=== PATIENT | female | born 1960 | race African-American/Black ===

== ENCOUNTER 2016-06-30 22:01 | Emergency (ER) | payer MEDICAID ==
[~2016-06-30] VITALS: Ht 167.6 cm; Wt 79.0 kg
[~2016-06-30 22:01] MED LIST: ACET-3161 GT; ATOR10TA69 PO; CARI350T27 PO; HYDR12.529 PO; LEVO25TA7 PO
[2016-06-30] MEDS ORDERED: LORAZEPAM 2MG/ML CPJ IV STA (22:50)
[2016-06-30 23:33] LABS: BASOPHILS % 0.9 % (0.0-2.0); HEMATOCRIT. 40.2 % (36.0-48.0); HEMOGLOBIN. 13.5 g/dL (12.0-16.0); LYMPHOCYTES % 44.1 % (20.0-50.0); MEAN CORPUSCULAR HEMOGLOBIN 32.6 pg (28.0-32.0); MEAN CORPUSCULAR HGB CONC 33.5 g/dL (31.0-37.0); MEAN CORPUSCULAR VOLUME 97.3 fL (81.0-99.0); MEAN PLATELET VOLUME 8.3 fl (7.4-10.4); MONOCYTES % 5.6 % (2.0-8.0); NEUTROPHILS % 48.4 % (40.0-76.0); PLATELET 296 x1000/uL (130-400); RED BLOOD CELL COUNT 4.13 mill/uL (4.2-5.4); RED CELL DISTRIBUTION WIDTH 15.1 % (11.6-14.6); WHITE BLOOD COUNT 5.4 x1000/uL (4.5-11.0)
[2016-06-30 23:43] LABS: CHLORIDE 101 mEq/L (98-107); INDEX HEMOLYSI 2 (1-3); INDEX ICTERIC 1 (1-4); INDEX LIPEMIC 1 (1-3)
[2016-06-30 23:58] LABS: AMMONIA 36 uMol/L (<32)
[2016-07-01] LABS: ANION GAP 18; CARBON DIOXIDE 21 mEq/L (21-32)
[2016-07-01 00:01] LABS: ALANINE AMINOTRANSFERASE 50 IU/L (13-61); ALBUMIN 3.7 g/dL (3.4-5.0); CALCIUM 8.9 mg/dL (8.5-10.1); ETHANOL BLOOD 65 mg/dL; UREA NITROGEN BLOOD 17 mg/dL (7-21); eGFR > 60 mL/min (>60)
[2016-07-01 00:02] LABS: ACETAMINOPHEN 13 ug/mL (10-30); THYROID STIMULATING HORMONE 0.38 uIU/mL (0.36-3.74)
[2016-07-01 00:09] LABS: CLARITY URINE CLEAR (CLEAR); COLOR URINE YELLOW (YELLOW); GLUCOSE URINE NEGATIVE (NEGATIVE); KETONES URINE NEGATIVE (NEGATIVE); LEUKOCYTE ESTERASE URINE NEGATIVE (NEGATIVE); NITRITE URINE NEGATIVE (NEGATIVE); OCCULT BLOOD URINE NEGATIVE (NEGATIVE); PH URINE 5.5 (4.5-8.0); PROTEIN URINE NEGATIVE (NEGATIVE); SPECIFIC GRAVITY URINE 1.013 (1.005-1.030); UROBILINOGEN URINE 0.2 E.U./dL (0.2-1.0)
[2016-07-01 00:27] LABS: *AMPHETAMINES SCREEN URINE NEGATIVE (NEGATIVE); *BARBITURATES SCREEN URINE NEGATIVE (NEGATIVE); *BENZODIAZEPINES SCREEN URINE NEGATIVE (NEGATIVE); *COCAINE SCREEN URINE NEGATIVE (NEGATIVE); CANNABINOID URINE SCREEN NEGATIVE (NEGATIVE); ECSTASY MDMA SCREEN URINE NEGATIVE (NEGATIVE); METHADONE URINE SCREEN NEGATIVE (NEGATIVE); OPIATES URINE SCREEN PRESUMTIVE POSITIVE (NEGATIVE); PHENCYCLIDINE URINE SCREEN NEGATIVE (NEGATIVE)
[2016-07-01 02:00] VITALS: BP 137/78
== END 2016-07-01 02:18 | disposition home or self-care (01) ==
LOC: ER 22:01
DX: G93.40 Encephalopathy, unspecified (principal); I10 Essential (primary) hypertension; I51.7 Cardiomegaly; Z98.890 Other specified postprocedural states
CPT/HCPCS: 36415; 70450; 71010; 80053; 80302; 80305; 80329; 81003; 82140; 84443; 85025; 93005; 99285; G0482; Z7610; 80307

== ENCOUNTER 2018-07-01 19:17 | Emergency (ER) | payer MEDICAID ==
[~2018-07-01] VITALS: Ht 162.6 cm; Wt 73.0 kg
[2018-07-01] MEDS ORDERED: SODIUM CHLORIDE 0.9% 1,000 ML IV ONE (20:52)
[2018-07-01] MEDS ORDERED: ONDANSETRON HCL 4MG/2ML INJ IV STA (20:52)
[2018-07-01] MEDS ORDERED: IPRATROPIUM/ALBUTEROL 0.5-3(2.5)MG/3ML NEB HHN ONE (21:45)
[2018-07-01 22:21] LABS: BASOPHILS % 0.9 % (0.0-2.0); EOSINOPHILS % 1.9 % (0.0-5.0); HEMATOCRIT. 26.9 % (36.0-48.0); HEMOGLOBIN. 8.8 g/dL (12.0-16.0); LYMPHOCYTES % 59.2 % (20.0-50.0); MEAN CORPUSCULAR HEMOGLOBIN 31.2 pg (28.0-32.0); MEAN CORPUSCULAR VOLUME 94.7 fL (81.0-99.0); MEAN PLATELET VOLUME 8.9 fl (7.4-10.4); MONOCYTES % 6.7 % (2.0-8.0); NEUTROPHILS % 31.3 % (40.0-76.0); PLATELET 203 x1000/uL (130-400); RED BLOOD CELL COUNT 2.84 mill/uL (4.2-5.4); RED CELL DISTRIBUTION WIDTH 14.7 % (11.6-14.6)
[2018-07-01 22:25] LABS: CHLORIDE 111 mEq/L (98-107)
[2018-07-01 22:30] LABS: ETHANOL BLOOD < 10 mg/dL
[2018-07-01] MEDS ORDERED: POTASSIUM CHLORIDE 20MEQ TABLET SR PO ONE (22:45)
[2018-07-01 23:48] LABS: *AMPHETAMINES SCREEN URINE NEGATIVE (NEGATIVE); *BARBITURATES SCREEN URINE NEGATIVE (NEGATIVE); *BENZODIAZEPINES SCREEN URINE NEGATIVE (NEGATIVE); *COCAINE SCREEN URINE NEGATIVE (NEGATIVE)
[2018-07-01 23:49] LABS: CANNABINOID URINE SCREEN NEGATIVE (NEGATIVE); METHADONE URINE SCREEN NEGATIVE (NEGATIVE); OPIATES URINE SCREEN PRESUMTIVE POSITIVE (NEGATIVE); PHENCYCLIDINE URINE SCREEN NEGATIVE (NEGATIVE)
[2018-07-02 02:06] VITALS: BP 106/59
== END 2018-07-02 02:43 | disposition home or self-care (01) ==
LOC: ER 19:17
DX: T42.8X1A Poisoning by antiparkinsonism drugs and other central muscle-tone depressants, accidental (unintentional), initial encounter (principal); G93.40 Encephalopathy, unspecified; J45.909 Unspecified asthma, uncomplicated; I10 Essential (primary) hypertension; E03.9 Hypothyroidism, unspecified; F17.200 Nicotine dependence, unspecified, uncomplicated; Z79.899 Other long term (current) drug therapy; Y92.89 Other specified places as the place of occurrence of the external cause
CPT/HCPCS: 36415; 80053; 80305; 80320; 82962; 83880; 84484; 85025; 93005; 94640; 96361; 96374; 99284; J2405; J7030; J7620; Z7610; G0480

== ENCOUNTER 2018-12-29 15:23 | Emergency (ER) | payer MEDICAID, OTHER ==
[~2018-12-29] VITALS: Ht 167.6 cm; Wt 59.0 kg
[2018-12-29 18:16] LABS: BASOPHILS % 1.2 % (0.0-2.0); EOSINOPHILS % 1.2 % (0.0-5.0); HEMATOCRIT. 39.1 % (36.0-48.0); HEMOGLOBIN. 13.2 g/dL (12.0-16.0); LYMPHOCYTES % 43.6 % (20.0-50.0); MEAN CORPUSCULAR HEMOGLOBIN 31.5 pg (28.0-32.0); MEAN CORPUSCULAR VOLUME 93.2 fL (81.0-99.0); MEAN PLATELET VOLUME 9.7 fl (7.4-10.4); MONOCYTES % 6.3 % (2.0-8.0); NEUTROPHILS % 47.7 % (40.0-76.0); PLATELET 223 x1000/uL (130-400); RED CELL DISTRIBUTION WIDTH 14.6 % (11.6-14.6)
[2018-12-29 18:23] LABS: CHLORIDE 101 mEq/L (98-107)
[2018-12-29 18:26] LABS: ETHANOL BLOOD < 10 mg/dL
[2018-12-29 18:51] LABS: CLARITY URINE CLEAR (CLEAR); COLOR URINE YELLOW (YELLOW); KETONES URINE NEGATIVE (NEGATIVE); LEUKOCYTE ESTERASE URINE NEGATIVE (NEGATIVE); NITRITE URINE NEGATIVE (NEGATIVE); OCCULT BLOOD URINE NEGATIVE (NEGATIVE); PROTEIN URINE NEGATIVE (NEGATIVE); SPECIFIC GRAVITY URINE 1.018 (1.005-1.030); UROBILINOGEN URINE 0.2 E.U./dL (0.2-1.0)
[2018-12-29 19:19] LABS: *AMPHETAMINES SCREEN URINE NEGATIVE (NEGATIVE); *BARBITURATES SCREEN URINE NEGATIVE (NEGATIVE); *BENZODIAZEPINES SCREEN URINE NEGATIVE (NEGATIVE); *COCAINE SCREEN URINE NEGATIVE (NEGATIVE); CANNABINOID URINE SCREEN NEGATIVE (NEGATIVE)
[2018-12-29 19:20] LABS: METHADONE URINE SCREEN NEGATIVE (NEGATIVE); OPIATES URINE SCREEN PRESUMTIVE POSITIVE (NEGATIVE); PHENCYCLIDINE URINE SCREEN NEGATIVE (NEGATIVE)
[2018-12-29 22:51] VITALS: BP 123/74
== END 2018-12-29 22:54 | disposition home or self-care (01) ==
LOC: ER 15:23
DX: T40.601A Poisoning by unspecified narcotics, accidental (unintentional), initial encounter (principal); R41.82 Altered mental status, unspecified; E86.0 Dehydration; J44.9 Chronic obstructive pulmonary disease, unspecified; E78.00 Pure hypercholesterolemia, unspecified; I10 Essential (primary) hypertension; E03.9 Hypothyroidism, unspecified; F17.210 Nicotine dependence, cigarettes, uncomplicated; Y92.488 Other paved roadways as the place of occurrence of the external cause
CPT/HCPCS: 36415; 71045; 80305; 80307; 80320; 80329; 81003; 81025; 82140; 83605; 84443; 99284; G0480

== ENCOUNTER 2019-12-16 19:02 | Emergency (ER) | payer MEDICAID ==
[~2019-12-16] VITALS: Ht 167.6 cm; Wt 72.0 kg
[2019-12-16] MEDS ORDERED: SODIUM CHLORIDE 0.9% 1,000 ML IV ONE (19:33)
[2019-12-16 19:58] LABS: BASOPHILS % 0.5 % (0.0-2.0); EOSINOPHILS % 0.4 % (0.0-5.0); HEMATOCRIT. 40.4 % (36.0-48.0); HEMOGLOBIN. 13.5 g/dL (12.0-16.0); LYMPHOCYTES % 45.1 % (20.0-50.0); MEAN PLATELET VOLUME 9.4 fl (7.4-10.4); MONOCYTES % 8.4 % (2.0-8.0); NEUTROPHILS % 45.6 % (40.0-76.0); PLATELET 228 x1000/uL (130-400); RED BLOOD CELL COUNT 4.21 mill/uL (4.2-5.4); RED CELL DISTRIBUTION WIDTH 14.5 % (11.6-14.6)
[2019-12-16 20:18] LABS: CHLORIDE 104 mEq/L (98-107)
[2019-12-16 20:23] LABS: ETHANOL BLOOD < 10 mg/dL
[2019-12-16 20:28] LABS: CREATINE KINASE 76 IU/L (26-192)
[2019-12-16 21:21] LABS: CLARITY URINE CLEAR (CLEAR); COLOR URINE YELLOW (YELLOW); KETONES URINE NEGATIVE (NEGATIVE); LEUKOCYTE ESTERASE URINE NEGATIVE (NEGATIVE); NITRITE URINE NEGATIVE (NEGATIVE); OCCULT BLOOD URINE NEGATIVE (NEGATIVE); PH URINE 5.5 (4.5-8.0); PROTEIN URINE NEGATIVE (NEGATIVE); UROBILINOGEN URINE 0.2 E.U./dL (0.2-1.0)
[2019-12-16 21:38] LABS: *AMPHETAMINES SCREEN URINE NEGATIVE (NEGATIVE); *BARBITURATES SCREEN URINE NEGATIVE (NEGATIVE); *BENZODIAZEPINES SCREEN URINE NEGATIVE (NEGATIVE); *COCAINE SCREEN URINE NEGATIVE (NEGATIVE); CANNABINOID URINE SCREEN NEGATIVE (NEGATIVE); METHADONE URINE SCREEN NEGATIVE (NEGATIVE)
[2019-12-16 21:39] LABS: OPIATES URINE SCREEN PRESUMTIVE POSITIVE (NEGATIVE); PHENCYCLIDINE URINE SCREEN NEGATIVE (NEGATIVE)
[2019-12-17] VITALS: BP 140/75
== END 2019-12-17 00:10 | disposition home or self-care (01) ==
LOC: ER 19:02
DX: T42.8X1A Poisoning by antiparkinsonism drugs and other central muscle-tone depressants, accidental (unintentional), initial encounter (principal); T39.1X1A Poisoning by 4-Aminophenol derivatives, accidental (unintentional), initial encounter; I10 Essential (primary) hypertension; J45.909 Unspecified asthma, uncomplicated; Z78.1 Physical restraint status; Y92.018 Other place in single-family (private) house as the place of occurrence of the external cause
CPT/HCPCS: 36415; 71045; 80053; 80305; 80307; 80320; 80329; 81003; 82550; 83880; 84484; 85025; 93005; 96360; 99285; J7030; G0480

== ENCOUNTER 2021-05-16 18:39 | Emergency (ER) | payer MEDICAID ==
[~2021-05-16] VITALS: Ht 165.1 cm; Wt 54.0 kg
[2021-05-16 20:36] LABS: BASOPHILS % 0.6 % (0.0-2.0); EOSINOPHILS % 0.4 % (0.0-5.0); HEMATOCRIT. 41.8 % (36.0-48.0); LYMPHOCYTES % 53.2 % (20.0-50.0); MEAN CORPUSCULAR HEMOGLOBIN 31.4 pg (28.0-32.0); MEAN CORPUSCULAR VOLUME 93.6 fL (81.0-99.0); MEAN PLATELET VOLUME 8.6 fl (7.4-10.4); MONOCYTES % 6.6 % (2.0-8.0); NEUTROPHILS % 39.2 % (40.0-76.0); PLATELET 283 x1000/uL (130-400); RED BLOOD CELL COUNT 4.47 mill/uL (4.2-5.4); RED CELL DISTRIBUTION WIDTH 14.1 % (11.6-14.6)
[2021-05-16 20:44] LABS: CHLORIDE 100 mEq/L (98-107)
[2021-05-16 20:49] LABS: ETHANOL BLOOD < 10 mg/dL
[2021-05-17 00:09] LABS: CLARITY URINE CLEAR (CLEAR); COLOR URINE YELLOW (YELLOW); KETONES URINE NEGATIVE (NEGATIVE); LEUKOCYTE ESTERASE URINE NEGATIVE (NEGATIVE); NITRITE URINE NEGATIVE (NEGATIVE); OCCULT BLOOD URINE NEGATIVE (NEGATIVE); PROTEIN URINE NEGATIVE (NEGATIVE); SPECIFIC GRAVITY URINE 1.012 (1.005-1.030); UROBILINOGEN URINE 0.2 E.U./dL (0.2-1.0)
[2021-05-17 00:23] VITALS: BP 122/81
[2021-05-17 00:34] LABS: *AMPHETAMINES SCREEN URINE NEGATIVE (NEGATIVE)
[2021-05-17 00:35] LABS: *BARBITURATES SCREEN URINE NEGATIVE (NEGATIVE); *BENZODIAZEPINES SCREEN URINE NEGATIVE (NEGATIVE); *COCAINE SCREEN URINE NEGATIVE (NEGATIVE); METHADONE URINE SCREEN NEGATIVE (NEGATIVE); OPIATES URINE SCREEN PRESUMTIVE POSITIVE (NEGATIVE); PHENCYCLIDINE URINE SCREEN NEGATIVE (NEGATIVE)
[2021-05-17 00:36] LABS: CANNABINOID URINE SCREEN NEGATIVE (NEGATIVE)
== END 2021-05-17 00:23 | disposition home or self-care (01) ==
LOC: ER 18:39
DX: T78.8XXA Other adverse effects, not elsewhere classified, initial encounter (principal); J45.909 Unspecified asthma, uncomplicated; Z98.890 Other specified postprocedural states; X58.XXXA Exposure to other specified factors, initial encounter
CPT/HCPCS: 36415; 80053; 80305; 80320; 81003; 82962; 84484; 85025; 99285; G0480

== ENCOUNTER 2023-03-02 11:41 | Emergency (ER) | payer MEDICAID, OTHER ==
[~2023-03-02] VITALS: Ht 162.6 cm; Wt 60.0 kg
[2023-03-02 11:49] VITALS: TEMP 98.5; O2SAT 100
[2023-03-02] MEDS ORDERED: LORAZEPAM 2MG/ML CPJ IM ONE (12:15)
[2023-03-02] MEDS ORDERED: LEVETIRACETAM 500MG PREMIX 100 ML IV ONE (12:15)
[2023-03-02] MEDS ORDERED: LORAZEPAM 4MG/ML VIAL ONE (12:20)
[2023-03-02 12:35] VITALS: BP 148/106; PULSE 98; RESP 18
[2023-03-02 12:35] LABS: BASOPHILS % 0.5 % (0.0-2.0); EOSINOPHILS % 1.4 % (0.0-5.0); HEMATOCRIT. 39.3 % (36.0-48.0); HEMOGLOBIN. 12.7 g/dL (12.0-16.0); LYMPHOCYTES % 57.5 % (20.0-50.0); MEAN CORPUSCULAR HEMOGLOBIN 31.1 pg (28.0-32.0); MEAN CORPUSCULAR HGB CONC 32.3 g/dL (31.0-37.0); MEAN CORPUSCULAR VOLUME 96.3 fL (81.0-99.0); MEAN PLATELET VOLUME 9.4 fl (7.4-10.4); MONOCYTES % 9.1 % (2.0-8.0); NEUTROPHILS % 31.5 % (40.0-76.0); PLATELET 256 x1000/uL (130-400); RED BLOOD CELL COUNT 4.08 mill/uL (4.2-5.4); RED CELL DISTRIBUTION WIDTH 14.3 % (11.6-14.6); WHITE BLOOD COUNT 7.1 x1000/uL (4.5-11.0)
[2023-03-02 12:43] LABS: AMMONIA < 10 uMol/L (<32)
[2023-03-02 12:44] LABS: ALANINE AMINOTRANSFERASE 15 IU/L (10-49); ALBUMIN 4.8 g/dL (3.2-4.8); ASPARTATE AMINOTRANSFERASE 20 IU/L (<34); BILIRUBIN TOTAL 0.2 mg/dL (0.1-1.0); CARBON DIOXIDE 22 mEq/L (21-32); CHLORIDE 100 mEq/L (98-107); CREATININE 0.8 mg/dL (0.6-1.0); GLUCOSE 100 mg/dL (70-105); PROTEIN TOTAL 8.2 g/dL (6.0-8.3); SODIUM 132 mEq/L (136-145); TROPONIN I HIGH SENSITIVITY 6 ng/L (3.0-34); UREA NITROGEN BLOOD 10 mg/dL (9-23)
[2023-03-02 12:45] LABS: INR 0.9; PARTIAL THROMBOPLASTIN TIME 30.1 sec (23.4-31.0)
[2023-03-02 13:20] LABS: ETHANOL BLOOD < 10 mg/dL (<10)
[2023-03-02 13:22] LABS: POTASSIUM 2.7 mEq/L (3.5-5.1)
[2023-03-02] MEDS ORDERED: MAGNESIUM 1 G PREMIX 100 ML IV ONE (15:00)
[2023-03-02] MEDS ORDERED: KCL 20MEQ/100ML PREMIX 100 ML IV ONE (15:00)
[2023-03-02] MEDS ORDERED: TETANUS, DIPHTHERIA, PERTUSSIS VAC/PF 0.5ML (>10YR OLD) IM ONE (16:30)
[2023-03-02 16:56] LABS: THYROID STIMULATING HORMONE 0.84 uIU/mL (0.55-4.78); TROPONIN I HIGH SENSITIVITY 12 ng/L (3.0-34)
== END 2023-03-02 18:20 | disposition short-term general hospital (02) ==
LOC: ER 11:41 → CANBEDREQ 15:58 → ER 18:20
DX: S01.111A Laceration without foreign body of right eyelid and periocular area, initial encounter (principal); R41.82 Altered mental status, unspecified; R56.9 Unspecified convulsions; E87.6 Hypokalemia; J45.909 Unspecified asthma, uncomplicated; E07.9 Disorder of thyroid, unspecified; W18.39XA Other fall on same level, initial encounter; Y93.89 Activity, other specified; Y92.89 Other specified places as the place of occurrence of the external cause; Y99.8 Other external cause status
CPT/HCPCS: 80053; 80320; 82140; 83880; 83735; 84443; 85025; 85610; 85730; 86850; 86900; 86901; 84484; 36415; 71045; 70450; 72125; 93005; 12011; 96365; 96366; 96372; 99285; J1953; J2060; J3475; J3480; Z7610 ×4; C1893; G0480

== ENCOUNTER 2025-03-09 12:53 | Inpatient (IN) | payer OTHER ==
[2025-03-09] VITALS (13 sets, daily range): BP systolic 111–145; BP diastolic 45–63; PULSE 79–99; RESP 19–37; TEMP 36.4–36.7; O2SAT 95–99
[~2025-03-09] VITALS: Ht 149.9 cm; Wt 66.3 kg
[~2025-03-09 12:53] MED LIST changes: +CARI-517 PO; -CARI350T27 PO
[2025-03-09] MEDS ORDERED: AZITHROMYCIN 500MG/250ML 250 ML IV STA (13:09)
[2025-03-09] MEDS: IPRATROPIUM BROMIDE (0.02%) 0.5MG/2.5ML NEB HHN SCH (13:15)
[2025-03-09] MEDS: ALBUTEROL (0.083%) 2.5MG/3ML NEB HHN SCH (13:35)
[2025-03-09] MEDS: METHYLPREDNISOLONE SOD SUCC 125MG/2ML (ACT-O-VIAL) IV ONE (14:04)
[2025-03-09] MEDS: MAGNESIUM 2 G PREMIX 50 ML IV ONE (14:05)
[2025-03-09 15:20] LABS: BASOPHILS % 1.2 % (0.0-2.0); EOSINOPHILS % 2.2 % (0.0-5.0); HEMATOCRIT. 38.9 % (36.0-48.0); HEMOGLOBIN. 13.2 g/dL (12.0-16.0); LYMPHOCYTES % 34.4 % (20.0-50.0); MEAN PLATELET VOLUME 8.3 fl (7.4-10.4); MONOCYTES % 9.5 % (2.0-8.0); NEUTROPHILS % 52.7 % (40.0-76.0); PLATELET 372 x1000/uL (130-400); RED BLOOD CELL COUNT 4.23 mill/uL (4.2-5.4); RED CELL DISTRIBUTION WIDTH 14.7 % (11.6-14.6)
[2025-03-09] MEDS ORDERED: ACETAMINOPHEN 325MG TABLET PO PRN (15:30)
[2025-03-09] MEDS ORDERED: ONDANSETRON HCL 4MG/2ML INJ IV PRN (15:30)
[2025-03-09] MEDS ORDERED: MAGNESIUM/ALUMINUM HYDROXIDE/SIMETHICONE 30ML UDC PO PRN (15:30)
[2025-03-09] MEDS ORDERED: CLONIDINE 0.1MG TABLET PO PRN (15:30)
[2025-03-09 15:39] LABS: CREATININE 0.9 mg/dL (0.6-1.0); UREA NITROGEN BLOOD 11 mg/dL (9-23)
[2025-03-09 15:41] LABS: TROPONIN I HIGH SENSITIVITY 9 ng/L (3.0-34)
[2025-03-09] MEDS ORDERED: HYDROCODONE/ACETAMINOPHEN 5/325MG TABLET PO PRN (15:55)
[2025-03-09] MEDS ORDERED: CEFTRIAXONE 1GM/50ML 50 ML IV SCH (16:00)
[2025-03-09] MEDS ORDERED: DOXYCYCLINE 100MG/100ML 100 ML IV SCH (16:30)
[2025-03-09] MEDS ORDERED: NALOXONE HCL 0.4MG/ML VIAL IV PRN (17:00)
[2025-03-09] MEDS: ENOXAPARIN 40MG/0.4ML SYR SUBCUT SCH (18:15)
[2025-03-09] MEDS: DOXYCYCLINE 100MG/100ML 100 ML IV SCH (18:15)
[2025-03-09] MEDS ORDERED: ZOLPIDEM TARTRATE 5MG TABLET PO PRN (20:00)
[2025-03-09] MEDS: IPRATROPIUM/ALBUTEROL 0.5-3(2.5)MG/3ML NEB HHN SCH (20:24)
[2025-03-09] MEDS: ATORVASTATIN CALCIUM 10MG TABLET PO SCH (21:33)
[2025-03-09] MEDS: CEFTRIAXONE 1GM/50ML 50 ML IV SCH (21:34)
[2025-03-09] MEDS: METHYLPREDNISOLONE SOD SUCC 40MG/ML (ACT-O-VIAL) IV SCH (21:36)
[2025-03-10] VITALS (16 sets, daily range): BP systolic 117–145; BP diastolic 53–73; PULSE 61–89; RESP 16–29; TEMP 36.2–36.9; O2SAT 95–100
[2025-03-10 01:45] LABS: TROPONIN I HIGH SENSITIVITY 8 ng/L (3.0-34)
[2025-03-10 04:32] LABS: HEPATITIS C AB NON REACTIVE (Neg) (Negative)
[2025-03-10] MEDS: LEVOTHYROXINE SODIUM 25MCG TABLET PO SCH (08:11)
[2025-03-10] MEDS: PANTOPRAZOLE SODIUM 40 MG/VIAL IV SCH (08:11)
[2025-03-10 09:08] LABS: TROPONIN I HIGH SENSITIVITY 7 ng/L (3.0-34)
[2025-03-10 10:05] LABS: BASOPHILS % 0.2 % (0.0-2.0); EOSINOPHILS % 0.1 % (0.0-5.0); HEMATOCRIT. 42.0 % (36.0-48.0); HEMOGLOBIN. 13.4 g/dL (12.0-16.0); LYMPHOCYTES % 12.6 % (20.0-50.0); MEAN PLATELET VOLUME 8.4 fl (7.4-10.4); MONOCYTES % 4.1 % (2.0-8.0); NEUTROPHILS % 83.0 % (40.0-76.0); PLATELET 354 x1000/uL (130-400); RED BLOOD CELL COUNT 4.49 mill/uL (4.2-5.4); RED CELL DISTRIBUTION WIDTH 15.2 % (11.6-14.6)
[2025-03-10 13:57] LABS: CREATININE 0.9 mg/dL (0.6-1.0); UREA NITROGEN BLOOD 17 mg/dL (9-23)
[2025-03-10 15:03] LABS: *AMPHETAMINES SCREEN URINE NEGATIVE (NEGATIVE); *BARBITURATES SCREEN URINE NEGATIVE (NEGATIVE); *BENZODIAZEPINES SCREEN URINE NEGATIVE (NEGATIVE); *COCAINE SCREEN URINE NEGATIVE (NEGATIVE); CANNABINOID URINE SCREEN NEGATIVE (NEGATIVE); ECSTASY MDMA SCREEN URINE NEGATIVE (NEGATIVE); METHADONE URINE SCREEN NEGATIVE (NEGATIVE); OPIATES URINE SCREEN PRESUMPTIVE POSITIVE (NEGATIVE); PHENCYCLIDINE URINE SCREEN NEGATIVE (NEGATIVE)
[2025-03-10 15:13] LABS: CLARITY URINE CLEAR (CLEAR); COLOR URINE YELLOW (YELLOW); GLUCOSE URINE NEGATIVE (NEGATIVE); KETONES URINE TRACE (NEGATIVE); LEUKOCYTE ESTERASE URINE TRACE (NEGATIVE); NITRITE URINE NEGATIVE (NEGATIVE); OCCULT BLOOD URINE NEGATIVE (NEGATIVE); PH URINE 7.0 (4.5-8.0); PROTEIN URINE NEGATIVE (NEGATIVE); SPECIFIC GRAVITY URINE 1.016 (1.005-1.030); UROBILINOGEN URINE 0.2 E.U./dL (0.2-1.0)
[2025-03-10 16:34] LABS: BACTERIA URINE NONE SEEN; RBC URINE NONE SEEN /hpf (0-2); SQUAMOUS EPITHELIAL CELL URINE FEW /lpf (RARE/1+); WBC URINE NONE SEEN /hpf (0-2)
[2025-03-11] VITALS (18 sets, daily range): BP systolic 125–144; BP diastolic 48–72; PULSE 59–89; RESP 17–32; TEMP 36.4–37.2; O2SAT 94–100
[2025-03-11 02:43] LABS: INFLUENZA TYPE A Presumptive Negative (Pres. Neg.)
[2025-03-11 02:44] LABS: INFLUENZA TYPE B Presumptive Negative (Pres. Neg.)
[2025-03-11 02:49] LABS: RESPIRATORY SYNCYTIAL VIRUS Not Detected (Not Detectd)
[2025-03-11 07:16] LABS: CREATININE 0.8 mg/dL (0.6-1.0); UREA NITROGEN BLOOD 23 mg/dL (9-23)
[2025-03-11 07:26] LABS: BASOPHILS % 0.1 % (0.0-2.0); EOSINOPHILS % 0.0 % (0.0-5.0); HEMATOCRIT. 37.2 % (36.0-48.0); HEMOGLOBIN. 12.5 g/dL (12.0-16.0); LYMPHOCYTES % 8.6 % (20.0-50.0); MEAN PLATELET VOLUME 8.1 fl (7.4-10.4); MONOCYTES % 3.5 % (2.0-8.0); NEUTROPHILS % 87.8 % (40.0-76.0); PLATELET 410 x1000/uL (130-400); RED BLOOD CELL COUNT 4.07 mill/uL (4.2-5.4); RED CELL DISTRIBUTION WIDTH 14.9 % (11.6-14.6)
[2025-03-11] MEDS: POLYETHYLENE GLYCOL 3350 (17GM) 1 DOSE PACK PO SCH (13:59)
[2025-03-11] MEDS: METHYLPREDNISOLONE SOD SUCC 40MG/ML (ACT-O-VIAL) IV SCH (20:56)
[2025-03-12] VITALS (11 sets, daily range): BP systolic 121–140; BP diastolic 51–64; PULSE 55–87; RESP 17–25; TEMP 36–36.4; O2SAT 93–100
[2025-03-12 07:24] LABS: BASOPHILS % 0.1 % (0.0-2.0); EOSINOPHILS % 0.0 % (0.0-5.0); HEMATOCRIT. 35.2 % (36.0-48.0); HEMOGLOBIN. 11.8 g/dL (12.0-16.0); LYMPHOCYTES % 13.7 % (20.0-50.0); MEAN PLATELET VOLUME 8.1 fl (7.4-10.4); MONOCYTES % 5.3 % (2.0-8.0); NEUTROPHILS % 80.9 % (40.0-76.0); PLATELET 390 x1000/uL (130-400); RED BLOOD CELL COUNT 3.84 mill/uL (4.2-5.4); RED CELL DISTRIBUTION WIDTH 14.6 % (11.6-14.6)
[2025-03-12 07:38] LABS: CREATININE 0.8 mg/dL (0.6-1.0); UREA NITROGEN BLOOD 20 mg/dL (9-23)
[2025-03-12] MEDS: NA PHOS,M-B/NA PHOS,DI-BA ENEMA 118ML PR NR (09:49)
[2025-03-12] MEDS ORDERED: ALBU18HF2 IH (12:30)
[2025-03-12] MEDS ORDERED: METH4TAB95 MT (12:30)
[2025-03-12] MEDS ORDERED: FLUT1DIS3 INH (12:30)
[2025-03-12] MEDS ORDERED: DOXY100C5 MT (12:30)
[2025-03-12] MEDS: POTASSIUM CHLORIDE 20MEQ TABLET SR PO SCH (14:11)
[2025-03-12] MEDS: PNEUMOCOCCAL 20-VAL CONJ-DIP CRM 0.5ML IM ONE (14:24)
[2025-03-12] MEDS ORDERED: PREDNISONE 20MG TABLET PO SCH (18:00)
== END 2025-03-12 14:39 | disposition home or self-care (01) | DRG 133 ==
LOC: ER 12:53 → 5EST 15:07 → EDBEDREQ 15:09 → EDBEDREQTM 15:09
PROVIDERS: ADMIT Internal Medicine; ATTEND Internal Medicine
PROC: 5A09357 Assistance with Respiratory Ventilation, Less than 24 Consecutive Hours, Continuous Positive Airway Pressure (ICD-10-PCS; principal; 2025-03-09)
DX: J96.01 Acute respiratory failure with hypoxia (principal); J44.9 Chronic obstructive pulmonary disease, unspecified; J45.901 Unspecified asthma with (acute) exacerbation; E03.9 Hypothyroidism, unspecified; I10 Essential (primary) hypertension; F17.210 Nicotine dependence, cigarettes, uncomplicated; Z71.6 Tobacco abuse counseling; Z79.899 Other long term (current) drug therapy
CPT/HCPCS: 36415; 71045; 80048; 80305; 81003; 84443; 84484; 85025; 86705; 87340; 87420; 87804; 90732; 93005; 93970; 94070; 94640; 94660; 94664; 99291; A4606; J0456; J0696; J1650; J2470; J2919; J3475; J3490